=== PATIENT | male | born 1970 | race Caucasian/White ===

== ENCOUNTER 2023-01-25 10:02 | Day surgery (SDC) | payer OTHER ==
[2023-01-22 13:54] VITALS: BMI 30.2
== END 2023-01-25 13:42 | disposition home or self-care (01) ==
LOC: CSHSDC 10:02
PROVIDERS: ATTEND Internal Medicine Gastroenterology
PROC: 0DBK8ZZ Excision of Ascending Colon, Via Natural or Artificial Opening Endoscopic (ICD-10-PCS; principal; 2023-01-25)
DX: Z12.11 Encounter for screening for malignant neoplasm of colon (principal); D12.2 Benign neoplasm of ascending colon; K58.9 Irritable bowel syndrome, unspecified; I10 Essential (primary) hypertension; K64.9 Unspecified hemorrhoids; E78.5 Hyperlipidemia, unspecified; J45.909 Unspecified asthma, uncomplicated; I48.91 Unspecified atrial fibrillation; F43.10 Post-traumatic stress disorder, unspecified; G47.00 Insomnia, unspecified; E11.42 Type 2 diabetes mellitus with diabetic polyneuropathy; M54.50 Low back pain, unspecified; G89.29 Other chronic pain; Z88.0 Allergy status to penicillin; Z79.84 Long term (current) use of oral hypoglycemic drugs; Z86.010 Personal history of colon polyps; Z79.899 Other long term (current) drug therapy
CPT/HCPCS: 88305